=== PATIENT | female | born 1970 | race Caucasian/White ===

== ENCOUNTER 2017-06-02 13:38 | Emergency (ER) | payer OTHER ==
[~2017-06-02] VITALS: Ht 157.5 cm; Wt 76.7 kg
[2017-06-02 15:21] VITALS: BP 136/88
== END 2017-06-02 15:21 | disposition home or self-care (01) ==
LOC: ED 13:38
DX: G56.02 Carpal tunnel syndrome, left upper limb (principal); I10 Essential (primary) hypertension; E07.9 Disorder of thyroid, unspecified

== ENCOUNTER 2018-12-19 18:13 | Emergency (ER) | payer MEDICAID ==
[~2018-12-19] VITALS: Ht 157.5 cm; Wt 82.1 kg
[2018-12-19 18:43] VITALS: Ht 157.5 cm; Wt 82.1 kg
[2018-12-19 21:42] VITALS: BP 141/86
== END 2018-12-19 21:42 | disposition home or self-care (01) ==
LOC: ED 18:13
DX: N39.0 Urinary tract infection, site not specified (principal); I10 Essential (primary) hypertension; Z98.51 Tubal ligation status
CPT/HCPCS: 87491; 87591